=== PATIENT | male | born 1950 | race Caucasian/White ===

== ENCOUNTER 2021-03-21 06:14 | Inpatient (IN) ==
--- NOTE | 2021-01-27 10:48 | PAT Medication Instructions ---
Medication Instructions Date of Service January 27, 2021 Home Medications aspirin 325 mg tablet 325 mg PO QAM atorvastatin 20 mg tablet 20 mg PO QPM carvedilol 3.125 mg tablet 3.125 mg PO BID digoxin 125 mcg (0.125 mg) tablet (Lanoxin) 125 mcg PO QPM doxycycline hyclate 50 mg tablet 50 mg PO BID fluocinonide 0.05 % topical gel 1 applic TOPICAL BID PRN folic acid 0.8 mg capsule 0.8 mg PO QAM hydrochlorothiazide 25 mg tablet 25 mg PO 3XWK lisinopril 20 mg tablet 20 mg PO QAM nystatin 100,000 unit/mL oral suspension 1 ml PO BID terazosin 5 mg tablet 5 mg PO HS ASK your prescriber and surgeon aspirin 325 mg tablet 325 mg PO QAM STOP taking 24 hours before surgery fluocinonide 0.05 % topical gel 1 applic TOPICAL BID PRN DO NOT take the morning of surgery folic acid 0.8 mg capsule 0.8 mg PO QAM hydrochlorothiazide 25 mg tablet 25 mg PO 3XWK lisinopril 20 mg tablet 20 mg PO QAM nystatin 100,000 unit/mL oral suspension 1 ml PO BID Take morning of surgery With a small sip of water, OTHERWISE NOTHING TO EAT OR DRINK AFTER MIDNIGHT: carvedilol 3.125 mg tablet 3.125 mg PO BID doxycycline hyclate 50 mg tablet 50 mg PO BID Take evening before surgery atorvastatin 20 mg tablet 20 mg PO QPM carvedilol 3.125 mg tablet 3.125 mg PO BID digoxin 125 mcg (0.125 mg) tablet (Lanoxin) 125 mcg PO QPM doxycycline hyclate 50 mg tablet 50 mg PO BID nystatin 100,000 unit/mL oral suspension 1 ml PO BID terazosin 5 mg tablet 5 mg PO HS Other Notes If you have any questions please call us at [phone] or [phone] or [phone] or [phone]
--- NOTE | 2021-02-02 10:51 | Anesthesiology Consultation ---
Date of Service February 02, 2021 Assessment & Plan (1) Encounter for pre-operative examination: - COVID screening: Per assessment on 01/25/21: Travel screen negative, no known COVID-19 positive contacts or current COVID-19 related symptoms. Patient v accinated + booster. Surgeon arranging preop COVID testing. Awaiting results. - ASA instructions: per surgeon/prescriber Chart Review Chart Review: Acceptable Risk for Surgery (pending surgeon-ordered PCP and cardiology preop evaluations) and Patient seen in Pre Admission Testing Teaching & Discussion Pre-Anesthesia Teaching/Discussion Notes: Instructed NPO after midnight before surgery,except medications with 15 cc of water. Medication instructions provided according to the PAT guidelines. History Surgery Operation Date: 03/01/21 07:45 Proposed Procedures p L2-S1 Decompression Fusion, Spinal Cord Monitoring - Gabino Little DO Height/Weight Height: 5 ft 8.5 in Weight: 75.7 kg Allergies Allergy/AdvReac Type Severity Reaction Status Date / Time prednisone AdvReac "makes me Verified 01/25/21 12:54 loopy" Medications Home Medications Medication Instructions Recorded Confirmed Last Taken aspirin 325 mg tablet 325 mg PO QAM 01/25/21 01/25/21 Unknown atorvastatin 20 mg tablet 20 mg PO QPM 01/25/21 01/25/21 Unknown carvedilol 3.125 mg tablet 3.125 mg PO BID 01/25/21 01/25/21 Unknown digoxin 125 mcg (0.125 mg) tablet 125 mcg PO QPM 01/25/21 01/25/21 Unknown (Lanoxin) doxycycline hyclate 50 mg tablet 50 mg PO BID 01/25/21 01/25/21 Unknown fluocinonide 0.05 % topical gel 1 applic TOPICAL BID PRN 01/25/21 01/25/21 Unknown folic acid 0.8 mg capsule 0.8 mg PO QAM 01/25/21 01/25/21 Unknown hydrochlorothiazide 25 mg tablet 25 mg PO 3XWK 01/25/21 01/25/21 Unknown lisinopril 20 mg tablet 20 mg PO QAM 01/25/21 01/25/21 Unknown nystatin 100,000 unit/mL oral 1 ml PO BID 01/25/21 01/25/21 Unknown suspension terazosin 5 mg tablet 5 mg PO HS 01/25/21 01/25/21 Unknown Past Medical History Medical History Atrial fibrillation Paroxysmal (Dx 1992) > Follows with cardiology (Dr. Givens) Per 09/14/20 cardiology evaluation, avoiding anticoagulation at that time d/t chronic injection therapies- rate controlled, continued on ASA 325mg + beta nina History of cardiomyopathy Hx tachycardia induced cardiomyopathy History of thrombocytopenia Remote hx felt to be medication reaction (previously seen by Dr. Ace/[facility]), normalized since med discontinuation HLD (hyperlipidemia) HTN (hypertension) Lichen planus Long-term doxycycline r/t hx of mouth sores Exercise / Class Metabolic Activity II 4-5 Yardwork/Stairs/Walk up hill Past Family History Family History Other No family history of adverse response to anesthesia Past Surgical History Surgical History History of cardiac catheterization - no stents History of colonoscopy Past Anesthesia History No Hx of Anesthesia Complications and No Family Hx of Anesthesia Complications History of PONV No Hx of PONV and No Hx of Motion Sickness Social History Smoking Status: Former smoker tobacco type: cigarettes Do You Dip or Chew Tobacco: No Smoking End Date: Quit 9 years ago Hx Alcohol Use: No Hx Substance Use: No substance use type: does not use Review of Systems Patient denies chest pain, shortness of breath, dyspnea on exertion, fever, chills, cough, wheezing, palpitations. Physical Exam Vital Signs VITALS BP 111/68 P 65 TEMP 98.1 SP02 100%RA RESP 16 PHYSICAL Full cervical extension range of motion. Full TMJ range of motion. TMD 4 finger breaths Mallampati Score 3 Dentition: missing sides/molars Lungs: clear throughout to auscultation Cardiac: regular rate, irregular rhythm, no murmurs noted Spine: normal Carotid arteries: negative bruit Extremities: no edema Lab Results Anesthesia Preop Results Results Anesthesia Widget: WBC 3.77 K/uL (4.8-10.8) L 02/02/21 Hgb 11.2 g/dL (14.0-18.0) L 02/02/21 Hct 32.1 % (42-52) L 02/02/21 Plt 145 K/uL (130-400) 02/02/21 Na 140 mmol/L (136-145) 02/02/21 K 4.4 mmol/L (3.5-5.1) 02/02/21 Cl 110 mmol/L (98-107) H 02/02/21 CO2 26 mmol/L (21-32) 02/02/21 BUN 23 mg/dl (7-18) H 02/02/21 Creat 1.27 mg/dl (0.6-1.4) 02/02/21 Glucose Level 92 mg/dl (70-99) 02/02/21 PT 10.5 Seconds (9.0-12.0) 02/02/21 PTT 27.9 Seconds (21.0-31.0) 02/02/21 INR 1.0 (0.9-1.1) 02/02/21 Urine Color Yellow 02/02/21 Urine Appearance Clear (Clear) 02/02/21 Urine pH 6.5 (4.5-7.5) 02/02/21 Urine Specific [place] 1.006 (1.000-1.030) 02/02/21 Urine Protein Negative (Negative) 02/02/21 Urine Glucose (UA) Negative (Negative) 02/02/21 Urine Ketones Negative (Negative) 02/02/21 Urine Blood Negative (Negative) 02/02/21 Urine Nitrite Negative (Negative) 02/02/21 Urine Bilirubin Negative (Negative) 02/02/21 Urine Urobilinogen Negative (Negative) 02/02/21 Urine Leukocyte Esterase Negative (Negative) 02/02/21 Blood Type O Negative 02/02/21 Antibody Screen NEGATIVE 02/02/21 Testing Electrocardiogram Date: 02/02/21 A. fib at 69bpm. Chest X-Ray Date: 02/02/21 Findings: + NAD Echocardiogram Date: 04/27/16 LVEF 45%. Mild diffuse LV hypokinesis. Atrial fibrillation during exam. Severe LAE. Mild MR/TR. Compared to prior study dated 07/09/2012, there has been an interval improvement in the overall LV systolic function per report.
[~2021-03-21 06:14] MED LIST: ACETAMINOPHEN 500 MG TAB PO SCH; CeleBREX 200 MG CAP PO SCH; GABAPENTIN 300 MG CAP PO SCH; LR 15ML/HR IV SCH; ceFAZolin 1000MG 1,000 MG/7.5 ML SYR IV SCH
[2021-03-21] MEDS ORDERED: MIDAZOLAM HCL 1 MG/ML 2ML VIAL ONE (07:17)
[2021-03-21] MEDS ORDERED: fentaNYL citrate 100 MCG/2 ML VIAL ONE (07:18)
[2021-03-21] MEDS ORDERED: ATROPINE SULFATE 0.1 MG/ML 10ML SYR IV PRN (07:24)
[2021-03-21] MEDS ORDERED: fentaNYL citrate 100 MCG/2 ML VIAL IV PRN (07:24)
[2021-03-21] MEDS ORDERED: HYDROmorphone INJ 1 MG/ML SYRINGE IV PRN ×2 (07:24→11:55)
[2021-03-21] MEDS ORDERED: MEPERIDINE HCL 25 MG/ML CARP/VIAL IV PRN (07:24)
[2021-03-21] MEDS ORDERED: LABETALOL HCL IV 5 MG/ML 20ML IV PRN (07:24)
[2021-03-21] MEDS ORDERED: PHENYLEPHRINE 100MCG/ML 5ML SYR IV PRN (07:24)
[2021-03-21] MEDS ORDERED: ONDANSETRON INJ 2 MG/ML 2 ML VIAL IV PRN ×2 (07:24→11:55)
[2021-03-21] MEDS ORDERED: ePHEDrine sulfate 50 MG/ML AMP IV PRN (07:24)
--- NOTE | 2021-03-21 07:27 | History & Physical Bridge Note ---
Date of Service March 21, 2021 History & Physical Bridge Note I have examined the patient, reviewed the History & Physical and in the interval since the performance of the History & Physical I have noted the following changes of clinical significance: no changes noted
--- NOTE | 2021-03-21 07:28 | History & Physical Report ---
Date of Service March 21, 2021 Assessment & Plan (1) Neurogenic claudication due to lumbar spinal stenosis: Plan: L2-S1 decompression fusion History of Present Illness Chief Complaint: Back and bilateral leg pain Primary Care Provider: Hao Lisa MD This is a 62-year-old male presents with chronic persistent back and bilateral leg pain. Failing course of nonoperative care is here for surgical invention. Allergies Allergy/AdvReac Type Severity Reaction Status Date / Time prednisone AdvReac "makes me Verified 03/21/21 06:42 loopy" Home Medications Medication Instructions Recorded Confirmed Type aspirin 325 mg tablet 325 mg PO QAM 01/25/21 03/21/21 History atorvastatin 20 mg tablet 20 mg PO QPM 01/25/21 03/21/21 History carvedilol 3.125 mg tablet 3.125 mg PO BID 01/25/21 03/21/21 History digoxin 125 mcg (0.125 mg) tablet 125 mcg PO QPM 01/25/21 03/21/21 History (Lanoxin) doxycycline hyclate 50 mg tablet 50 mg PO BID 01/25/21 03/21/21 History fluocinonide 0.05 % topical gel 1 applic TOPICAL BID PRN 01/25/21 03/21/21 History folic acid 0.8 mg capsule 0.8 mg PO QAM 01/25/21 03/21/21 History hydrochlorothiazide 25 mg tablet 25 mg PO 3XWK 01/25/21 03/21/21 History lisinopril 20 mg tablet 20 mg PO QAM 01/25/21 03/21/21 History nystatin 100,000 unit/mL oral 1 ml PO BID 01/25/21 03/21/21 History suspension terazosin 5 mg tablet 5 mg PO HS 01/25/21 03/21/21 History Multivitamin 50 Plus 1 tab PO DAILY 03/21/21 03/21/21 History Past Med/Surg History Medical History (Updated 03/21/21 @ 07:28 by Gabino Little DO) Anemia Atrial fibrillation Paroxysmal (Dx 1992) > Follows with cardiology (Dr. Givens) Per 09/14/20 cardiology evaluation, avoiding anticoagulation at that time d/t chronic injection therapies- rate controlled, continued on ASA 325mg + beta nina History of cardiomyopathy Hx tachycardia induced cardiomyopathy History of thrombocytopenia Remote hx felt to be medication reaction (previously seen by Dr. Ace/[facility]), normalized since med discontinuation HLD (hyperlipidemia) HTN (hypertension) Lichen planus Long-term doxycycline r/t hx of mouth sores Surgical History History of cardiac catheterization 1990s - no stents History of colonoscopy Family History Other No family history of adverse response to anesthesia Social History Smoking Status: Former smoker Smoking End Date: Quit 9 years ago; Second Hand Exposure: No; Do You Dip or Chew Tobacco: No; Tobacco Cessation Education Requested by Patient: No Hx Alcohol Use: No Hx Substance Use: No Preferred Language: Burmese Communication Ability: Effective 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
[2021-03-21] MEDS ORDERED: EPINEPHrine INJ 1 MG/ML AMP ONE (07:36)
[2021-03-21] MEDS ORDERED: BUPIVACAINE 0.5 % 5 MG/1 ML MPF 30ML VIAL ONE (07:36)
[2021-03-21] MEDS ORDERED: HYDROmorphone INJ 2 MG/ML SYR/VIAL ONE (08:19)
[2021-03-21] MEDS ORDERED: GLYCOPYRROLATE 0.2 MG/ML VIAL ONE (08:21)
[2021-03-21] MEDS ORDERED: PROPOFOL IV EMULSION 10 MG/ML 20 ML VIAL IV ONE (08:21)
[2021-03-21] MEDS ORDERED: ONDANSETRON INJ 2 MG/ML 2 ML VIAL ONE (08:21)
[2021-03-21] MEDS ORDERED: PHENYLEPHRINE HCL 10 MG/ML VIAL ONE (08:21)
[2021-03-21] MEDS ORDERED: ROCURONIUM BROMIDE 10 MG/ML 5 ML VIAL IV ONE ×3 (08:21→08:53)
[2021-03-21] MEDS ORDERED: LIDOCAINE 2% 2 ML VIAL/AMP(20MG/ML) INFIL ONE (08:21)
[2021-03-21] MEDS ORDERED: NEOSTIGMINE METHYLSULFATE 1 MG/ML 10ML VIAL ONE (08:21)
[2021-03-21] MEDS ORDERED: ePHEDrine sulfate 50 MG/ML SYR ONE (08:21)
[2021-03-21] MEDS ORDERED: LARYING-O-JET KIT (LTA) ONE (08:21)
[2021-03-21] MEDS ORDERED: DEXAMETHASONE SOD INJ 4 MG/ML VIAL ONE (08:21)
--- NOTE | 2021-03-21 10:07 | Operative Report ---
Post Operative Report Pre & Post Diagnosis Operation Date: 03/21/21 07:45 Pre-Op Diagnosis: Neurogenic claudication due to lumbar spinal stenosis Post-Op Diagnosis: Neurogenic claudication due to lumbar spinal stenosis I identified the patient and participated in the time-out.: Yes Procedure Operation Date: 03/21/21 07:45 Actual Procedures #1 Lumbar decompression bilateral medial facetectomies and foraminotomies L2-L3 L3-L4 L4-5 L5-S1. #2 posterior spinal fusion L2-S1. #3 placement posterior segmental instrumentation L2-S1. #4 interbody fusion L3-L4 L4-L5. #5 placement of titanium interbody cage 13 x 26 mm at L3-L4 and L4-L5. #6 placement locally harvested morselized autograft in the posterior lateral gutters per #7 placement infuse collagen sponge and master graft in the posterior lateral gutters and I factor interbody space. Surgeon Gabino Little, Quality Control Director Omega Russell Estimated Blood Loss 200 Findings Consistent with Post-Op Diagnosis Specimens None Indications This is a 62-year-old male who presents with marked decline in status with significant spinal stenosis here for the above-mentioned procedure. Description of Procedure Patient was met with identified informed consent obtained. Patient was then taken to the operative suite underwent a patient placed in a prone position the Nir table atop Remington frame. All bony prominences well-padded eyes inspected to ensure no external pressure placed upon the. This point the lumbar spine was prepped and draped in a sterile fashion. Sharp dissection with the assistance of Bovie cautery was performed down to and exposing the lamina and transverse processes of L2 L3-L4-L5 and sacral ala bilaterally. From a caudal cephalad fashion a partial laminectomy of L5 with complete laminectomy L4 L3 and L2 was performed including bilateral medial facetectomies and foraminotomies addressing severe spinal stenosis. Pedicle screws then placed in L3-L3 L4-L5 and S1 levels bilaterally with assistance of fluoroscopy and properly sized antwon placed. By way of transfer approach and left complete discectomy of L for L5 was performed endplates curetted to subcortical being bone and a 13 x 26 mm peek cage filled I factor tapped in position. Then proceeded to L3-L4 and again by way of a transforaminal portion of the right complete discectomy performed endplates curetted to subcortically bone and the 13 x 26 mm titanium cage filled with I factor tapped in position. The rods were then compressed locked in final position bilaterally. The transverse processes of L to L3-L4-L5 and sacral ala burred to subcortical bleeding bone. Infuse collagen sponge master graft and local graft was placed in the posterior gutters. 15 round MICH drain inserted. The incision was then closed with 1 Vicryl in the fascia 2-0 Vicryl subcutaneously and 4 Monocryl for final skin closure. Steri-Strip sterile dressings placed. Patient waken taken PACU stable condition. Please note spinal cord monitoring was utilized at the procedure no changes noted. Lastly Omega Russell was present at the entire surgery and involved with d while the patient positioning complex portions of the surgery and final skin closure. I attest to the content of the Intraoperative Record and any orders documented therein. Any exceptions are noted below.
--- NOTE | 2021-03-21 10:07 | Fluoroscopy Report ---
FL lumbar spine 2-3V CLINICAL HISTORY: L2-S1 decompression and fusion COMPARISON STUDY: None FLUOROSCOPY TIME: 38 seconds. FLUOROSCOPIC IMAGES: 3 FINDINGS: The patient is status post interpedicular screw and antwon fixation from L2 through S1. Disc s pacers are noted at L3-4 and L4-5. There is also evidence for L3 and L4 laminectomies. IMPRESSION: Status post decompression and fusion. ACT 112: Negative or not required by law. Electronically signed by: Uvaldo Mendez M.D. 03/21/2021 10:06 AM
[2021-03-21] MEDS ORDERED: FLOSEAL HEMOSTATIC MATRIX 10ML TOP ONE (10:11)
--- NOTE | 2021-03-21 11:06 | Anesthesiology Progress Note ---
Date of Service March 21, 2021 Anesthesia Post Procedure Vital Signs Vital Signs: Temp Pulse Pulse Resp BP Pulse Ox 03/21/21 11:00 75 12 123/70 100 03/21/21 10:50 85 12 126/65 100 03/21/21 10:40 76 12 127/71 100 03/21/21 10:31 36.4 C L 89 12 112/61 100 03/21/21 06:39 36.8 C 88 18 163/83 H 98 Transfer of Care Handoff Completed per policy Notes Mental Status: alert / awake / arousable Patient Amnestic to Procedure: Yes Nausea / Vomiting: adequately controlled Pain: adequately controlled Airway Patency, RR, SpO2: stable & adequate BP & HR: stable & adequate Hydration State: stable & adequate Anesthetic Complications: no major complications apparent and Pt Satisfied with anesthetic care Notes: The patient is awake and comfortable. His vital signs are stable.
[2021-03-21] MEDS ORDERED: traMADol HCL 50 MG TABLET PO PRN (11:55)
[2021-03-21] MEDS ORDERED: HYDROmorphone INJ 0.5 MG/0.5 ML SYR IV PRN (11:55)
[2021-03-21] MEDS ORDERED: LORazepam 0.5 MG TAB PO PRN (11:55)
[2021-03-21] MEDS ORDERED: diphenhydrAMINE Capsule 25 MG CAP PO PRN (11:55)
[2021-03-21] MEDS ORDERED: NALOXONE HCL 0.4 MG/1 ML VIAL/CARP IV PRN (11:55)
[2021-03-21] MEDS ORDERED: ACETAMINOPHEN 500 MG TAB PO PRN (11:55)
[2021-03-21] MEDS ORDERED: PROMETHAZINE HCL 12.5 MG in SODIUM CHLORIDE 0.9% 50 ML IV PRN (11:55)
[2021-03-21] MEDS ORDERED: ONDANSETRON 4 MG OD TAB PO PRN (11:55)
[2021-03-21] MEDS ORDERED: METOCLOPRAMIDE HCL INJ 5 MG/ML 2 ML VIAL IV PRN (11:55)
[2021-03-21] MEDS ORDERED: hydrOXYzine HCl 25 MG TAB PO PRN (11:55)
[2021-03-21] MEDS ORDERED: DO NOT ADMINISTER PNEUMOCOCCAL VACCINE PRN (11:55)
[2021-03-21] MEDS ORDERED: ACETAMINOPHEN 1,000 MG/100 ML VIAL IV PRN (11:55)
[2021-03-21] MEDS ORDERED: LORazepam 0.5 MG/1 ML VIAL IV PRN (11:55)
[2021-03-21] MEDS ORDERED: DO NOT ADMINISTER FLU VACCINE PRN (11:55)
[2021-03-21] MEDS ORDERED: FAMOTIDINE 20 MG TAB PO PRN (11:55)
[2021-03-21] MEDS ORDERED: ALUMINUM/MAGNESIUM SUSP 30 ML UDC PO PRN (11:55)
[2021-03-21] MEDS ORDERED: bisacodyL 10 MG SUPP PR PRN (11:55)
[2021-03-21] MEDS ORDERED: SOD PHOSPHATE/SOD BIPHOSPHATE ENEMA 132 ML BTL PR PRN (11:55)
[2021-03-21] MEDS ORDERED: oxyCODONE HCL IR 5 MG TAB (IMMEDIATE RELEASE) PO PRN (11:55)
[2021-03-21] MEDS ORDERED: MAGNESIUM HYDROXIDE SUSP 30 ML UDC PO PRN (11:55)
--- NOTE | 2021-03-21 12:16 | Hospitalist Consultation ---
Date of Consultation March 21, 2021 Assessment & Plan (1) Neurogenic claudication due to lumbar spinal stenosis: POD #0 s/p lumbar decompression/fusion by Dr. Little - currently doing well overall post-operatively. Some mild nausea but has prn anti-emetics ordered. - Pain control, DVT prophylaxis, activity per primary service - Encourage OOB as tolerated, incentive spirometry - Labs in AM (2) Atrial fibrillation: - Continue home meds for rate control - Resume aspirin 325 mg daily once okay with primary service (3) HTN (hypertension): Continue to monitor BP - appears overall controlled post-operative. Resume home meds. (4) Myelodysplastic syndrome: Labs in AM (5) Oral lichen planus: (6) Anemia: Pre-op Hgb ~11 - recheck in AM (7) HLD (hyperlipidemia): Resume home meds as appropriate. Pt seen and reviewed with collaborating physician, Dr. Jose. Plan of care discussed and as outlined above. Thank you for the consultation. We will continue to follow the patient with you. A member of the [facility] team is available 15/10. Please don't hesitate to reach out with questions. Diamond Shetty PA-C Supervising Physician Co-Signing Physician Notes Attending addendum The patient was seen and examined in medical floor He is a status post lumbar back surgery and has been doing fine Denies any significant symptoms On examination Lying in bed comfortably Hemodynamically stable with tachycardia of 119 Chestclear to auscultate bilaterally HeartS1-S2, regular Abdomenbenign Extremitiesno edema CNSalert, awake and oriented His labs, imaging studies and medications reviewed He is a status post L2-L3 decompression fusion-management as per Ortho surgery Medically stable Agree with assessment and plan as outlined above by GREGG Call Dr History of Present Illness Reason for Consultation: Post-operative Medical Management Requesting Physician: Dr. Gabino Little Attending Physician: Gabino Little DO History of Present Illness This is a 70 y/o male with a PMH of spinal stenosis, chronic atrial fibrillation, MDS, thrombocytopenia, HTN, and tachycardia-induced cardiomyopathy who underwent lumbar decompression and fusion today. We have been consulted to assist with post-operative medical management. Pt has a history of chronic back issues x 2 years. His pain has been primarily in bilateral LE, and not in his actual lumbar area. Has had issues with numbness and tingling as well. Legs have given out on him once but not an ongoing issue. He failed conservative management with PT and pain management. He was using prn Tylenol for pain pre- op without significant relief. No bowel or bladder incontinence. Pt has a history of chronic atrial fibrillation but he is not on full anticoagulation due to hx of MDS and anemia but rather on aspirin 325 mg daily. Pt is seen post- operatively on the floor. Overall, feels well. Prior pain in legs is improved. Mild incisional discomfort in back. Has had some transient nausea but no vomiting. Denies chest pain, palpitations, cough, SOB, FRIAS, dizziness. Has a Daven[place] catheter in place. Has not yet passed flatus. Allergies Allergy/AdvReac Type Severity Reaction Status Date / Time prednisone AdvReac "makes me Verified 03/21/21 06:42 loopy" Home Medications Medication Instructions Recorded Confirmed Type aspirin 325 mg tablet 325 mg PO QAM 01/25/21 03/21/21 History atorvastatin 20 mg tablet 20 mg PO QPM 01/25/21 03/21/21 History carvedilol 3.125 mg tablet 3.125 mg PO BID 01/25/21 03/21/21 History digoxin 125 mcg (0.125 mg) tablet 125 mcg PO QPM 01/25/21 03/21/21 History (Lanoxin) doxycycline hyclate 50 mg tablet 50 mg PO BID 01/25/21 03/21/21 History fluocinonide 0.05 % topical gel 1 applic TOPICAL BID PRN 01/25/21 03/21/21 History folic acid 0.8 mg capsule 0.8 mg PO QAM 01/25/21 03/21/21 History hydrochlorothiazide 25 mg tablet 25 mg PO 3XWK 01/25/21 03/21/21 History lisinopril 20 mg tablet 20 mg PO QAM 01/25/21 03/21/21 History nystatin 100,000 unit/mL oral 5 ml PO BID 01/25/21 03/21/21 History suspension terazosin 5 mg tablet 5 mg PO HS 01/25/21 03/21/21 History Multivitamin 50 Plus 1 tab PO DAILY 03/21/21 03/21/21 History oxycodone 5 mg tablet 5 mg PO Q6H PRN #30 tab 12/28/21 Rx tramadol 50 mg tablet 50 mg PO Q6H PRN #30 tab 03/21/21 Rx Patient History Medical History (Updated 03/21/21 @ 12:59 by Keerthi Shetty PA-C) Anemia Atrial fibrillation Paroxysmal (Dx 1992) > Follows with cardiology (Dr. Givens) Per 09/14/20 cardiology evaluation, avoiding anticoagulation at that time d/t chronic injection therapies- rate controlled, continued on ASA 325mg + beta nina History of cardiomyopathy Hx tachycardia induced cardiomyopathy History of thrombocytopenia Remote hx felt to be medication reaction (previously seen by Dr. cAe/[facility]), normalized since med discontinuation HLD (hyperlipidemia) HTN (hypertension) Lichen planus Long-term doxycycline r/t hx of mouth sores Myelodysplastic syndrome Oral lichen planus Surgical History History of cardiac catheterization - no stents History of colonoscopy S/P repair of hydrocele Family History Mother Spherocytosis Heart disease Sister Spherocytosis Father Heart disease Stroke Other No family history of adverse response to anesthesia Social History Smoking Status: Former smoker Smoking End Date: Quit 9 years ago; Second Hand Exposure: No; Do You Dip or Chew Tobacco: No; Tobacco Cessation Education Requested by Patient: No Hx Alcohol Use: No Hx Substance Use: No Preferred Language: Sami Communication Ability: Effective First Aid Attendant Required: No Beliefs That Will Affect Care: None Current Living Situation: Spouse Feels Safe at Home: Yes Safety Concerns: Feels Safe At This Time Assistive Devices: None Review of Systems Review of Systems: All systems reviewed & are unremarkable except as noted in HPI & below Constitutional: no fever, no chills, no sweats and no fatigue Eyes: no diplopia and no worsening vision Ear, Nose, Mouth, Throat: no nasal congestion, no nasal discharge and no sore throat Respiratory: no cough, no dyspnea and no wheezing Cardiovascular: no chest pain, no palpitations, no lightheadedness, no syncope and no edema Gastrointestinal: + nausea; no abdominal pain, no vomiting and no diarrhea/loose stools Genitourinary: + problem reported ([place] catheter in place) Musculoskeletal: + back pain (mild discomfort at incision) Integumentary: + problem reported (chronic issues with lichen planus) Neurologic: no generalized weakness, no dizziness and no headache(s) Psychiatric: no depression and no anxiety Physical Exam Constitutional: well developed and well nourished; no acute distress Eyes: + anicteric sclerae Neck: trachea midline Respiratory: no respiratory distress and no labored breathing Auscultation: lungs clear to auscultation bilaterally; no rales, no rhonchi and no wheezes Cardiovascular: Rate/Rhythm: + irregularly irregular Heart Sounds: no gallop, no murmur and no cardiac rub Vessels: radial pulses present Extremities: normal capillary refill; no pedal edema Gastrointestinal (Abdomen): Inspection/Auscultation: normal bowel sounds; abdomen not distended Percussion/Palpation: abdomen soft; abdomen nontender Musculoskeletal: Head/Neck/Chest: normocephalic, head atraumatic and neck supple lumbar area with incision C/D/I, MICH drain in place with sanguinous drainage Neurologic: moves all extremities; no focal motor deficits Psychiatric: A+Ox3, euthymic affect Results & Data Results & Data ([facility]) Vital Signs (Past 12 Hours) Vital Signs Temp Pulse Pulse Resp BP Pulse Ox 03/21/21 11:40 36.5 C 79 14 118/77 94 03/21/21 11:30 79 14 117/74 100 03/21/21 11:20 75 14 116/72 100 03/21/21 11:10 81 12 117/64 100 03/21/21 11:00 75 12 123/70 100 03/21/21 10:50 85 12 126/65 100 03/21/21 10:40 76 12 127/71 100 03/21/21 10:31 36.4 C L 89 12 112/61 100 03/21/21 06:39 36.8 C 88 18 163/83 H 98 Laboratory Results 03/21/21 03/21/21 06:17 06:38 SARS-CoV-2, RNA, NAAT NEGATIVE Blood Type O Negative Antibody Screen NEGATIVE Crossmatch See Detail Medications Administered Acetaminophen (Acetaminophen 500 Mg Tab) 1,000 mg PO PREOP KEMAL Stop: 03/21/21 18:00 Last Admin: 03/21/21 06:53 Dose: 1,000 mg Documented by: [id number] Celecoxib (Celebrex 200 Mg Cap) 200 mg PO PREOP KEMAL Stop: 03/21/21 18:00 Last Admin: 03/21/21 06:53 Dose: 200 mg Documented by: [id number] Gabapentin (Gabapentin 300 Mg Cap) 300 mg PO PREOP KEMAL Stop: 03/21/21 18:00 Last Admin: 03/21/21 06:53 Dose: 300 mg Documented by: [id number] Lactated Ringer's (Lr) 1,000 mls @ 15 mls/hr IV .Q24H KEMAL Stop: 03/22/21 05:59 Last Infusion: 03/21/21 07:43 Dose: 0 mls/hr Documented by: [id number] Admin: 03/21/21 06:49 Dose: 15 mls/hr Documented by: [id number] Cefazolin Sodium (Ancef 1000mg) 1,000 mg in 7.5 mls @ 2.5 mls/min IV PREOP KEMAL; Protocol Stop: 03/21/21 18:00 Last Admin: 03/21/21 07:43 Dose: 2.5 mls/min Documented by: [id number] Sodium Chloride (Nss 1000ml) 1,000 mls @ 100 mls/hr IV .Q10H KEMAL Stop: 04/20/21 11:54 Last Admin: 03/21/21 13:07 Dose: 100 mls/hr Documented by: [id number] Ondansetron HCl (Ondansetron Inj 2 Mg/Ml 2 Ml Vial) 4 mg IV Q6H PRN PRN Reason: Nausea &/or Vomiting Stop: 04/20/21 11:54 Last Admin: 03/21/21 13:10 Dose: 4 mg Documented by: [id number] Discontinued Medications Bupivacaine HCl (Bupivacaine 0.5 % 5 Mg/1 Ml Mpf 30ml Vial) Confirm Administered Dose 30 ml .ROUTE .STK-MED ONE Stop: 03/21/21 07:37 Last Admin: 03/21/21 10:10 Dose: 25 ml Documented by: [id number] Cefazolin Sodium (Cefazolin 250 Mg/Ml 1 Gm Vial) Confirm Administered Dose 1,000 mg .ROUTE .STK-MED ONE Stop: 03/21/21 07:37 Last Admin: 03/21/21 10:11 Dose: 1,000 mg Documented by: [id number] Epinephrine HCl (Epinephrine Inj 1 Mg/Ml Amp) Confirm Administered Dose 1 mg .ROUTE .STK-MED ONE Stop: 03/21/21 07:37 Last Admin: 03/21/21 10:11 Dose: 0.15 mg Documented by: [id number] Miscellaneous ( Floseal Hemostatic Matrix 10ml) 13 ml TOP ONCE ONE Stop: 03/21/21 10:12 Last Admin: 03/21/21 10:12 Dose: 13 ml Documented by: [id number]
[2021-03-21] MEDS: SODIUM CHLORIDE 0.9% 1000ML 1,000 ML IV SCH (13:07)
[2021-03-21] MEDS: hydroCHLOROthiazide 25 MG TAB PO SCH (15:01)
[2021-03-21] MEDS: ceFAZolin 2000MG 2,000 MG/15 ML SYR IV SCH (18:09)
[2021-03-21] MEDS: DOXYCYCLINE HYCLATE 50 MG CAP PO SCH (21:31)
[2021-03-21] MEDS: DIGOXIN 0.125 MG TAB PO SCH (21:31)
[2021-03-21] MEDS: NYSTATIN SUSP 500,000 U/5 ML UDC PO SCH (21:32)
[2021-03-21] MEDS: DOCUSATE SODIUM/SENNA 50/8.6MG TAB PO SCH (21:32)
[2021-03-21] MEDS: TERAZOSIN HCL 5 MG CAP PO SCH (21:32)
[2021-03-21] MEDS: ATORVASTATIN 20 MG TAB PO SCH (21:32)
[2021-03-21] MEDS: carvediloL 3.125 MG TAB PO SCH (21:34)
[2021-03-22] MEDS: SODIUM CHLORIDE 0.9% 1000ML 1,000 ML IV SCH (00:08)
[2021-03-22] MEDS: ceFAZolin 2000MG 2,000 MG/15 ML SYR IV SCH (03:00)
[2021-03-22] MEDS: POLYETHYLENE (MIRALAX) 17 GM PACK PO SCH ×4 (06:11→23:21)
[2021-03-22 07:38] LABS: Hematocrit (blood only) 26.3 % (42-52); Hemoglobin 9.2 g/dL (14.0-18.0); Lymphocytes # (auto) 0.76 K/uL (1.2-3.4); Lymphocytes % (auto) 9.6 %; Mean Corpuscular Hemoglobin 37.1 pg (25-34); Mean Platelet Volume 9.1 fL (7.4-10.4); Monocytes # (auto) 0.72 K/uL (0.11-0.59); Monocytes % (auto) 9.1 %; Neutrophils % (auto) 81.3 %; Platelet Count 117 K/uL (130-400); RDW Coefficient of Variation 12.8 % (11.5-14.5); RDW Standard Deviation 48.4 fL (36.4-46.3); Red Blood Count 2.48 M/uL (4.7-6.1); White Blood Count 7.88 K/uL (4.8-10.8)
[2021-03-22 08:15] LABS: Creatinine Clr Calc Pharmacy 59.4 ml/min; Est GFR (African American) 73.8 ml/min; Est GFR (Non-African American) 63.7 ml/min; Potassium 4.1 mmol/L (3.5-5.1)
[2021-03-22] MEDS: ASPIRIN 325 MG ECTAB PO SCH (10:00)
[2021-03-22] MEDS: MULTIVITAMIN TAB PO SCH (10:00)
[2021-03-22] MEDS: lisinopril 20 MG TAB PO SCH (10:00)
[2021-03-22] MEDS: dexAMETHasone 6 MG in SYRINGE 0 ML IV SCH (10:00)
[2021-03-22] MEDS: carvediloL 3.125 MG TAB PO SCH ×2 (10:00→21:42)
[2021-03-22] MEDS: DOXYCYCLINE HYCLATE 50 MG CAP PO SCH ×2 (10:01→21:42)
[2021-03-22] MEDS: NYSTATIN SUSP 500,000 U/5 ML UDC PO SCH ×2 (10:01→21:41)
[2021-03-22] MEDS: FOLIC ACID 400 MCG TAB PO SCH (10:01)
--- NOTE | 2021-03-22 11:02 | Orthopedic Progress Note ---
Date of Service March 22, 2021 Assessment & Plan (1) Neurogenic claudication due to lumbar spinal stenosis: Plan: At this time we will continue physical therapy monitor his MICH operatively discharge home in next few days. Admission and Anticipated Discharge Date Admission Date: March 21, 2021 Subjective Back pain controlled leg pain markedly improved Physical Exam Physical Exam: Patient is in the chair at bedside. Is good strength testing. Appears comfortable. Results & Data ([facility]) Vital Signs (Past 12 Hours) Vital Signs Temp Pulse Resp BP Pulse Ox 03/22/21 07:30 36.6 C 94 H 18 101/68 93 03/22/21 02:58 36.7 C 95 H 18 100/66 100
--- NOTE | 2021-03-22 19:34 | Hospitalist Progress Note ---
Date of Service March 22, 2021 Assessment & Plan (1) Neurogenic claudication due to lumbar spinal stenosis: Plan: POD #1 s/p lumbar decompression/fusion by Dr. Little Acute blood loss post operative anemia Pain control PT/OT Monitor CBC Incentive spirometry Bowel regimen to prevent constipation (2) Atrial fibrillation: Plan: - Continue Coreg, Digoxin - On Aspirin 325 mg daily (3) HTN (hypertension): Plan: Continue current meds (4) Myelodysplastic syndrome: Plan: Monitor CBC (5) Oral lichen planus: (6) Anemia: Plan: Monitor CBC (7) HLD (hyperlipidemia): Plan: DVT Px: Disposition As per Primary Team Admission and Anticipated Discharge Date Admission Date: March 21, 2021 Subjective Patient is seen and examined at bedside States back pain is controlled Ambulating in hallway earlier today + Flatus but no bowel movement this morning Denies any chest pain, shortness of breath, dizziness, nausea, abdominal pain Offers no other complaints Review of Systems Review of Systems: All systems reviewed & are unremarkable except as noted in Subjective Physical Exam Physical Exam: 1Physical Exam: Vitals signs as noted above General Appearance:Moderately built and nourished, no apparent distress Head: normocephalic, Atraumatic Eyes: normal inspection, EOMI Neck: supple, Trachea midline Respiratory/Chest: Normal breath sounds, CTA Cardiovascular: Irregularly irregular, No murmur Abdomen/GI:Soft, Non tender, Bowel sounds present Back: Surgical site in dressing Extremities/Musculoskeletal:normal inspection, Trace edema Neurologic/Psych:AAOX3, grossly no focal neurological deficits Skin: normal color, warm Results & Data Results & Data ([facility]) Vital Signs (Past 12 Hours) Vital Signs Temp Pulse Pulse Resp BP Pulse Ox 03/22/21 15:23 36.7 C 105 H 16 95/61 L 99 03/22/21 11:10 36.6 C 96 H 16 108/70 95 03/22/21 07:30 36.6 C 94 H 18 101/68 93 Laboratory Results Short CBC 03/22/21 Range/Units 07:09 WBC 7.88 (4.8-10.8) K/uL Hgb 9.2 L (14.0-18.0) g/dL Hct 26.3 L (42-52) % Plt Count 117 L (130-400) K/uL BMP 03/22/21 07:09 Sodium 141 Potassium 4.1 Chloride 110 H Carbon Dioxide 25 BUN 23 H Creatinine 1.17 Glucose 117 H Calcium 8.0 L
[2021-03-22] MEDS: ATORVASTATIN 20 MG TAB PO SCH (21:42)
[2021-03-22] MEDS: DOCUSATE SODIUM/SENNA 50/8.6MG TAB PO SCH (21:42)
[2021-03-22] MEDS: TERAZOSIN HCL 5 MG CAP PO SCH (21:42)
[2021-03-22] MEDS: DIGOXIN 0.125 MG TAB PO SCH (21:43)
[2021-03-23] MEDS: POLYETHYLENE (MIRALAX) 17 GM PACK PO SCH ×3 (06:36→17:18)
[2021-03-23 07:38] LABS: Hematocrit (blood only) 24.3 % (42-52); Hemoglobin 8.6 g/dL (14.0-18.0); Mean Corpuscular Hemoglobin 37.2 pg (25-34); Mean Corpuscular Hgb Conc 35.4 g/dL (32-36); Mean Corpuscular Volume 105.2 fL (80-100); Mean Platelet Volume 9.5 fL (7.4-10.4); Platelet Count 106 K/uL (130-400); RDW Coefficient of Variation 12.9 % (11.5-14.5); RDW Standard Deviation 48.5 fL (36.4-46.3); Red Blood Count 2.31 M/uL (4.7-6.1); White Blood Count 7.99 K/uL (4.8-10.8)
[2021-03-23] MEDS: ASPIRIN 325 MG ECTAB PO SCH (08:55)
[2021-03-23] MEDS: DOXYCYCLINE HYCLATE 50 MG CAP PO SCH ×2 (08:55→20:56)
[2021-03-23] MEDS: FOLIC ACID 400 MCG TAB PO SCH (08:56)
[2021-03-23] MEDS: NYSTATIN SUSP 500,000 U/5 ML UDC PO SCH ×2 (08:56→20:56)
[2021-03-23] MEDS: dexAMETHasone 6 MG in SYRINGE 0 ML IV SCH (08:56)
[2021-03-23] MEDS: MULTIVITAMIN TAB PO SCH (08:56)
[2021-03-23] MEDS: lisinopril 20 MG TAB PO SCH (08:56)
[2021-03-23] MEDS: hydroCHLOROthiazide 25 MG TAB PO SCH (08:56)
--- NOTE | 2021-03-23 09:03 | Hospitalist Progress Note ---
Date of Service March 23, 2021 Assessment & Plan (1) Neurogenic claudication due to lumbar spinal stenosis: Plan: POD #2 s/p lumbar decompression/fusion by Dr. Little Acute blood loss post operative anemia - hgb 8.6 today (preop 11.2) Pain control PT/OT Monitor CBC Incentive spirometry Had bowel movement today (2) Atrial fibrillation: Plan: Continue Coreg, Digoxin On Aspirin 325 mg daily (3) HTN (hypertension): Plan: Continue current meds (4) Myelodysplastic syndrome: Plan: Monitor CBC (5) Anemia: Plan: Monitor CBC Plan: DVT Px: Disposition As per Primary Team Admission and Anticipated Discharge Date Admission Date: March 21, 2021 Supervising Physician Co-Signing Physician Notes Patient is seen in the bedside. Denies any significant pain at surgical site. Ambulating in hallways. Had bowel movement. Denies any chest pain, shortness of breath. On exam patient is moderately built and nourished, no apparent distress, normocephalic atraumatic, EOMI, lungs are clear to auscultation, normal breath sounds, S1-S2, no murmur, no pedal edema, abdomen soft, nontender, normal bowel sounds, back+ drain, surgical site in dressing, grossly no focal deficits. Lumbar spinal stenosis with neurogenic claudication, postoperative anemia. No indication for transfusion currently. Continue bowel regimen. Wound care, PT OT, DVT prophylaxis per primary team. Monitor CBC. I personally reviewed the record. Patient is interviewed and examined at bedside. Patient's care is coordinated with Irina Maldonado PA-C. Please refer to the documentation abo ve for details of patient's presentation and for discussion of other issues. Subjective Patient is seen and examined in 309-1. Has some surgical site pain. Ambulating and participating with therapy without issue. Had bowel movement this morning. Denies any fever, chills, lightheadedness, chest pain, shortness of breath, dizziness, nausea, abdominal pain, dysuria, diarrhea or constipation. Review of Systems Review of Systems: At least ten systems reviewed and negative except as noted in the HPI. Physical Exam Physical Exam: Gen: WD/WN, NAD, sitting in bedside chair, A&Ox3 HEENT: Normocephalic, atraumatic, conjunctivae moist, sclerae anicteric, mucous membranes moist Lung: Clear to auscultation bilaterally, no wheezes/rales/rhonchi Heart: Regular rate, regular rhythm, no murmurs, rubs, or gallops Abdomen: Soft, NT, ND +BS x 4 Extremities: Spinal dressing c/d/i, MICH drain visualized. No edema Skin: Warm, no rash Results & Data Results & Data ([facility]) Vital Signs (Past 12 Hours) Vital Signs Temp Pulse Pulse Pulse Resp BP BP 03/23/21 06:56 36.6 C 79 18 113/68 03/22/21 23:13 36.5 C 86 16 116/69 03/22/21 21:43 80 03/22/21 21:40 80 103/67 Pulse Ox 03/23/21 06:56 99 03/22/21 23:13 100 03/22/21 21:43 03/22/21 21:40 Laboratory Results Short CBC 03/23/21 Range/Units 06:21 WBC 7.99 (4.8-10.8) K/uL Hgb 8.6 L (14.0-18.0) g/dL Hct 24.3 L (42-52) % Plt Count 106 L (130-400) K/uL Diagnostic Findings Lumbar Spine X-Ray 03/21/21 07:45 FL lumbar spine 2-3V CLINICAL HISTORY: L2-S1 decompression and fusion COMPARISON STUDY: None FLUOROSCOPY TIME: 38 seconds. FLUOROSCOPIC IMAGES: 3 FINDINGS: The patient is status post interpedicular screw and antwon fixation from L2 through S1. Disc spacers are noted at L3-4 and L4-5. There is also evidence for L3 and L4 laminectomies. IMPRESSION: Status post decompression and fusion. ACT 112: Negative or not required by law. Electronically signed by: Uvaldo Mendez M.D. 03/21/2021 10:06 AM
[2021-03-23] MEDS: carvediloL 3.125 MG TAB PO SCH ×2 (09:41→20:53)
--- NOTE | 2021-03-23 10:54 | Orthopedic Progress Note ---
Date of Service March 23, 2021 Assessment & Plan (1) Neurogenic claudication due to lumbar spinal stenosis: Plan: At this time continue physical therapy monitor MICH output anticipate discharge home tomorrow. Admission and Anticipated Discharge Date Admission Date: March 21, 2021 Subjective Patient's back pain is controlled leg pain markedly improved Physical Exam Physical Exam: On exam he is good strength testing is in the chair at the beds kimi. Appears comfortable. Results & Data ([facility]) Vital Signs (Past 12 Hours) Vital Signs Temp Pulse Resp BP Pulse Ox 03/23/21 09:38 99 H 103/66 03/23/21 06:56 36.6 C 79 18 113/68 99 03/22/21 23:13 36.5 C 86 16 116/69 100
[2021-03-23] MEDS: DOCUSATE SODIUM/SENNA 50/8.6MG TAB PO SCH (20:55)
[2021-03-23] MEDS: ATORVASTATIN 20 MG TAB PO SCH (20:55)
[2021-03-23] MEDS: TERAZOSIN HCL 5 MG CAP PO SCH (20:55)
[2021-03-23] MEDS: DIGOXIN 0.125 MG TAB PO SCH (20:56)
[2021-03-24 06:25] LABS: Hematocrit (blood only) 25.4 % (42-52); Hemoglobin 8.8 g/dL (14.0-18.0); Mean Corpuscular Hemoglobin 36.4 pg (25-34); Mean Corpuscular Hgb Conc 34.6 g/dL (32-36); Platelet Count 124 K/uL (130-400); RDW Coefficient of Variation 12.8 % (11.5-14.5); RDW Standard Deviation 48.5 fL (36.4-46.3); Red Blood Count 2.42 M/uL (4.7-6.1); White Blood Count 7.26 K/uL (4.8-10.8)
[2021-03-24 06:59] LABS: BUN Creatinine Ratio 28.4 (10-20); Calcium 8.4 mg/dl (8.5-10.1); Creatinine Clr Calc Pharmacy 56.1 ml/min; Est GFR (African American) 68.8 ml/min; Est GFR (Non-African American) 59.4 ml/min
[2021-03-24] MEDS: lisinopril 20 MG TAB PO SCH (08:29)
[2021-03-24] MEDS: carvediloL 3.125 MG TAB PO SCH (08:29)
--- NOTE | 2021-03-24 08:46 | Hospitalist Progress Note ---
Date of Service March 24, 2021 Assessment & Plan (1) Neurogenic claudication due to lumbar spinal stenosis: Plan: POD #3 s/p lumbar decompression/fusion by Dr. Little Acute blood loss post operative anemia - hgb stable at 8.8 today from 8.6 yesterday (preop hgb 11.2) Pain control PT/OT Monitor CBC Incentive spirometry (2) Atrial fibrillation: Plan: Continue Coreg with hold parameters, Digoxin On Aspirin 325 mg daily (3) HTN (hypertension): Plan: Continue current meds (4) Myelodysplastic syndrome: Plan: Monitor CBC (5) Anemia: Plan: Monitor CBC Plan: DVT Px: Disposition As per Primary Team Admission and Anticipated Discharge Date Admission Date: March 21, 2021 Supervising Physician Co-Signing Physician Notes Patient is seen in the bedside. No new complaints. Eager to get discharged. Given relatively low blood pressure will decrease the lisinopril to 10 mg daily upon discharge. Denies any chest pain, shortness of breath. On exam patient is moderately built and nourished, no apparent distress, normocephalic atraumatic, EOMI, lungs are clear to auscultation, normal breath sounds, S1-S2, no murmur, no pedal edema, abdomen soft, nontender, normal bowel sounds, back+ drain, surgical site in dressing, grossly no focal deficits. Lumbar spinal stenosis with neurogenic claudication, postoperative anemia. No indication for transfusion currently. Continue bowel regimen. Wound care, PT OT, DVT prophylaxis per primary team. Monitor CBC. Lisinopril dose decreased to 10 mg daily given relatively low blood pressure. Advised patient to follow-up with PCP for further adjustment of blood pressure medications and monitor blood pressure at home. I personally reviewed the record. Patient is interviewed and examined at bedside. Patient's care is coordinated with Irina Maldonado PA-C. Please refer to the documentation above for details of patient's presentation and for discussion of other issues. Subjective Patient is seen and examined in 309-1. Surgical site pain improved. Ambulating and participating with therapy without issue. Had bowel movement yesterday. Denies any fever, chills, lightheadedness, chest pain, shortness of breath, dizziness, nausea, abdominal pain, dysuria, diarrhea or constipation. Review of Systems Review of Systems: At least ten systems reviewed and negative except as noted in the HPI. Physical Exam 2 Physical Exam: Gen: WD/WN, NAD, sitting in bedside chair, A&Ox3 HEENT: Normocephalic, atraumatic, conjunctivae moist, sclerae anicteric, mucous membranes moist Lung: Clear to auscultation bilaterally, no wheezes/rales/rhonchi Heart: Regular rate, regular rhythm, no murmurs, rubs, or gallops Abdomen: Soft, NT, ND +BS x 4 Extremities: Spinal dressing c/d/i, MICH drain visualized. No edema Skin: Warm, no rash Results & Data Results & Data ([facility]) Vital Signs (Past 12 Hours) Vital Signs Temp Pulse Pulse Resp BP Pulse Ox 03/24/21 07:55 36.7 C 91 H 18 96/61 L 100 03/23/21 22:20 36.6 C 83 17 91/60 L 100 03/23/21 20:56 80 Laboratory Results Short CBC 03/24/21 Range/Units 06:09 WBC 7.26 (4.8-10.8) K/uL Hgb 8.8 L (14.0-18.0) g/dL Hct 25.4 L (42-52) % Plt Count 124 L (130-400) K/uL BMP 03/24/21 06:09 Sodium 139 Potassium 4.0 Chloride 109 H Carbon Dioxide 26 BUN 35 H D Creatinine 1.24 Glucose 99 Calcium 8.4 L Diagnostic Findings Lumbar Spine X-Ray 03/21/21 07:45 FL lumbar spine 2-3V CLINICAL HISTORY: L2-S1 decompression and fusion COMPARISON STUDY: None FLUOROSCOPY TIME: 38 seconds. FLUOROSCOPIC IMAGES: 3 FINDINGS: The patient is status post interpedicular screw and antwon fixation from L2 through S1. Disc spacers are noted at L3-4 and L4-5. There is also evidence for L3 and L4 laminectomies. IMPRESSION: Status post decompression and fusion. ACT 112: Negative or not required by law. Electronically signed by: Uvaldo Mendez M.D. 03/21/2021 10:06 AM
[2021-03-24] MEDS: ASPIRIN 325 MG ECTAB PO SCH (09:19)
[2021-03-24] MEDS: DOXYCYCLINE HYCLATE 50 MG CAP PO SCH (09:19)
[2021-03-24] MEDS: FOLIC ACID 400 MCG TAB PO SCH (09:19)
[2021-03-24] MEDS: MULTIVITAMIN TAB PO SCH (09:19)
[2021-03-24] MEDS: NYSTATIN SUSP 500,000 U/5 ML UDC PO SCH (09:19)
[2021-03-24] MEDS: dexAMETHasone 6 MG in SYRINGE 0 ML IV SCH (09:19)
--- NOTE | 2021-03-24 10:43 | Discharge Summary ---
Date of Service March 24, 2021 Admission HPI Per Admitting Provider This is a 62-year-old male presents with chronic persistent back and bilateral leg pain. Failing course of nonoperative care is here for surgical invention. Principal Diagnosis Lumbar spinal stenosis with neurogenic claudication Discharge Data Allergies Allergy/AdvReac Type Severity Reaction Status Date / Time prednisone AdvReac "makes me Verified 03/21/21 06:42 loopy" Consultations 03/21/21 11:55 Consult Hospitalist Routine Procedures Performed Operation Date: 03/21/21 07:45 Actual Procedures p L2-L3 Decompression Fusion, with Interbody Fusion L3-L4 and L4-L5, with Application of Bone Morphogenetic Protein and IFactor Bone Graft, Spinal Cord Monitoring(Not Applicable) - Gabino Little DO s Removal Hardware L3-S1,(Not Applicable) - Gabino Little DO Ordered Studies 03/21/21 07:45 [place] lumbar spine 2-3V Routine Hospital Course (1) Neurogenic claudication due to lumbar spinal stenosis: Patient underwent multilevel lumbar decompression fusion [facility] posting orthopedic for postop labor postop day 1 is up ambulating pain well controlled. Progressed postop day #2 on postop day 3 MICH drain decreased probably. Excellent strength testing. Socially discharged home. Discharge orders instructions from the chart for further review. Total Time Total Time Spent Total Time Spent (In Minutes): 20 minutes Discharge Plan Discharge Items Patient Disposition: Home - Self-Care Reason For Visit: Thoraculumbar/lumbosacral Intervertebral Disc Diso Discharge Diagnosis: Lumbar spinal stenosis with neurogenic claudication Activity: As commented below Non-emergency contact: Primary Care Provider Call non-emergency contact if: you have any medication questions Follow-up/Referrals: Gabino Little DO [Surgeon] - Hao Lisa MD [Primary Care Provider] - Diet: Regular Addtl Attending Provider Instructions: ACTIVITY RECOMMENDATIONS: SELF CARE INSTRUCTIONS AFTER THORACIC/LUMBAR FUSIONS 1. You may walk to your tolerance. It is good exercise for your legs and back. Expect some back and intermittent leg aches and pains. 2. You may perform "counter-top" level activities (make a sandwich, dilshad with a project, etc.). 3. No bending or lifting of more than 10 pounds or back twisting of any nature (roll like a log when turning in bed). 4. You may ride in a car for 20-30 minutes at a time. No driving until after your first visit with your doctor. 5. Frequent changes of position and restricting sitting to 30 minutes at a time will help limit the amount of back spasms and stiffness you may experience. 6. You may discontinue the use of ambulatory aids (cane, crutches, etc.) once your strength and confidence allow. 7. You may electrical logging engineer the shower and let water strike your incision when you arrive home at least once daily. Do not take a tub bath, sit in a hot tub or go into a swimming pool until after your first recheck in the office. SPECIAL CARE INSTRUCTIONS: VERY IMPORTANT TO READ AND REVIEW A. Your surgical incision has been closed with a cosmetic suture under the skin that will dissolve in about 6 weeks. In 14 days, you can use a pair of clean scissors and cut the suture that is left outside of the skin at the ends of your incision. 1. The small skin tapes can be removed 7 days after surgery if they have not fallen off by that point. 2. You may keep the wound open to air as much as possible to promote healing after post-op day number 5 unless told otherwise by your doctor. 3. If you think the wound looks like it is becoming infected (redness or worsening drainage) and/or you are experiencing fever, chill or worsening back pain and muscle spasms, contact the office so that we may evaluate you as soon as possible. B. Complications are uncommon, but please contact us if you have any signs or symptoms of: 1. wound infection (fever higher than 102.5 degrees F, redness, separation of wound, drainage, or increasing pain from the incision) 2. blood clots in legs (pain, swelling, redness and warmth in legs) 3. urinary tract infection (fever higher than 102.5 degrees F, burning upon urination or increased frequency of urination) 4. nerve problems (inability to walk on your toes or heels, numbness, loss of bowel or bladder control) 5. any other symptoms that concern you C. Please call the office at if you have any concerns or questions about your operation or recovery. D. No smoking! Smoking drastically decreases the chance of a solid fusion. E. Do not take any anti-inflammatory medications (Indocin, Advil, Motrin, Aspirin, Naprosyn, etc.) as these may inhibit the chance of a solid fusion. Tylenol is okay to take for pain. MANAGING PAIN AFTER SPINAL SURGERY 1. Narcotic medication is intended for short-term use and will be provided for surgical pain. Surgical pain usually lasts for a period of 4-6 weeks. Narcotic medication includes Percocet, Vicodin, Darvocet, Tylenol #3 or Lortab. 2. Longer-term pain is more appropriately treated with non-narcotic medication such as Tylenol ES. 3. Muscle spasm is not appropriately treated with narcotics. Muscle relaxers such as Soma, Flexeril or Skelaxin can be used along with Tylenol ES. 4. Remember that we all live with some "aches and pains". This is not unusual or uncommon after an injury or as we get older. a. Back pain is expected and may include muscle spasms for 4 to 6 weeks after surgery. The pain should gradually improve. If the pain worsens for no apparent reason, please contact the office. b. Intermittent leg pain may also be experienced and should not be concerned about unless it worsens for no apparent reason. If so, please contact the office. 5. We will provide appropriate medication within the normal guidelines of their prescribed use. We will also be very cautious and aware of potential abuse and extended duration of patients' medication needs. a. Pain medications are for your comfort and to assist with sleep and rest so that the tissue can heal. They are not provided in order to return to normal activity and should not be used through the day. To do so or worsening pain at night can result from ongoing tissue damage and development of tolerance to the prescribed medicine. 6. Please allow 2-3 days to process refills. Prescriptions will not be mailed but must be picked up at the office. FOLLOW UP VISIT: Keep your scheduled follow-up appointment. Any questions, please call the office at . Pending Studies at Discharge: No Stand-Alone Forms: My [facility], Smoking Cessation Medications and DC Order Prescriptions: New tramadol 50 mg tablet 50 mg PO Q6H PRN (Reason: pain, moderate) Qty: 30 RF: 0 oxycodone 5 mg tablet 5 mg PO Q6H PRN (Reason: pain, severe) Qty: 30 RF: 0 Continued nystatin 100,000 unit/mL Suspension 5 ml PO BID RF: 0 terazosin 5 mg Tablet 5 mg PO HS RF: 0 atorvastatin 20 mg Tablet 20 mg PO QPM RF: 0 aspirin 325 mg Tablet 325 mg PO QAM RF: 0 fluocinonide 0.05 % Gel 1 applic TOPICAL BID PRN (Reason: ud) RF: 0 lisinopril 20 mg Tablet 20 mg PO QAM RF: 0 carvedilol 3.125 mg Tablet 3.125 mg PO BID RF: 0 hydrochlorothiazide 25 mg Tablet 25 mg PO 3XWK RF: 0 digoxin [Lanoxin] 125 mcg (0.125 mg) Tablet 125 mcg PO QPM RF: 0 folic acid 0.8 mg Capsule 0.8 mg PO QAM RF: 0 doxycycline hyclate 50 mg Tablet 50 mg PO BID RF: 0 Multivitamin 50 Plus 1 tab PO DAILY RF: 0 Discharge Orders: Discharge Order (Routine); Ordered 03/24/21 Ordered By: Gabino Coleman/Other Patient Handouts: Preventing Deep Vein Thrombosis Admission Data Admit Date/Time: 03/21/21 07:37 Attending Provider: Gabino Little Admit Provider: Gabino Little Primary Care Provider: Hao Lisa Other Providers: Soila Mcknight ; Redd Garrison Other Interventions: Discharge Summary Assessment (RN) Last Done: 03/24/21 10:31
[2021-03-25] MEDS ORDERED: lisinopril 10 MG TAB PO SCH (09:00)
== END 2021-03-24 12:00 | disposition home or self-care (01) | DRG 454 ==
LOC: ASU 06:14 → 3E 06:14 → OBSVTOIN 07:37